=== PATIENT | female | born 1970 | race Caucasian/White ===

== ENCOUNTER → 2017-09-18 | Outpatient (CLI) | payer BC | END | disposition home or self-care (01) | LOC: CDC 08:33 | DX: Z01.810 Encounter for preprocedural cardiovascular examination (principal); M54.2 Cervicalgia | CPT/HCPCS: 93000 ==

== ENCOUNTER → 2018-05-25 | Outpatient (CLI) | payer BC ==
[~2018-05-25] VITALS: Ht 172.7 cm; Wt 120.2 kg
[~2018-05-25] MED LIST: ADULT ASPIRIN81 MG PO; ALDACTONE25 MG PO; PREVACID15 MG PO; XANAX0.5 MG PO
== END | disposition home or self-care (01) ==
LOC: AMB 07:00
PROC: 0DJD8ZZ Inspection of Lower Intestinal Tract, Via Natural or Artificial Opening Endoscopic (ICD-10-PCS; principal; 2018-05-25)
DX: Z12.11 Encounter for screening for malignant neoplasm of colon (principal); Z87.891 Personal history of nicotine dependence; Z79.82 Long term (current) use of aspirin; Z68.41 Body mass index [BMI] 40.0-44.9, adult
CPT/HCPCS: 93005; J2405